=== PATIENT | male | born 1980 | race African-American/Black ===

== ENCOUNTER 2023-06-15 22:58 | Emergency (ER) | payer SELFPAY ==
[2023-06-15 23:01] VITALS: BP 145/90
[2023-06-15 23:18] LABS: % Basophils 0.3 % (0-2); % Eosinophils 1.2 % (0-6); % Immature Granulocytes 0.2 % (0-0.5); % Monocytes 10.6 % (1.7-9.3); % Neutrophils 53.7 % (42.2-75.2); Absolute Eosinophils 0.1 10^3/uL (0-0.7); Absolute Monocytes 0.6 10^3/uL (0.1-0.6); Absolute Neutrophils 3.1 10^3/uL (1.4-6.5); Hematocrit 42.8 % (39.0-52.0); Hemoglobin 15.1 g/dL (13.0-18.0); Mean Corp Hgb Conc. 35.3 g/dL (33.0-37.0); Mean Corpuscular Hgb 29.4 pg (27.0-31.0); Mean Corpuscular Volume 83.3 fL (80.0-94.0); Mean Platelet Volume 9.9 fL (7.4-10.4); Nucleated Red Blood Cells % 0 % (-); Platelet Count 198 10^3/uL (130-400); Red Blood Cell Count 5.14 10^6/uL (4.70-6.10); Red Cell Dist. Width 12.6 % (11.5-14.5); White Blood Cell Count 5.8 10^3/uL (4.8-10.8)
[2023-06-15 23:48] LABS: ALT (SGPT) 42 U/L (0-50); AST (SGOT) 32 U/L (17-59); Albumin 4.4 g/dl (3.5-5.0); Alkaline Phosphatase 126 U/L (38-126); Blood Urea Nitrogen 15 mg/dl (9-20); Calcium 9.7 mg/dl (8.4-10.2); Carbon Dioxide 22 mmol/L (22-30); Chloride 105 mmol/L (98-107); Glucose 204 mg/dl (70-99); Sodium 134 mmol/L (135-145); Total Bilirubin 0.3 mg/dl (0.2-1.3); Total Protein 8.4 g/dl (6.3-8.2); eGFR > 60.00
[2023-06-15 23:52] LABS: Troponin I < 0.012 ng/ml
--- NOTE | 2023-06-16 00:41 | ED.GENMED ---
History of Present Illness
<DANY Vidal - Last Filed: 06/16/23 00:48>
General
Chief Complaint: Chest Pain
Source: patient
Exam Limitations: none
Time Seen by Provider: 06/16/23 00:17
Nursing documentation reviewed up to this point in time: agreed with
Travel History
Have you had any contact with someone who has COVID-19?: No
Do you have any symptoms of coronavirus? Fever > 100 degrees, chills, cough, shortness of breath, sore throat, loss of taste or smell, muscle aches, or headache?: No
History of Present Illness
History of Present Illness:
patient is a 42 y/o male with no PMH presenting with CP x 4 hours. Patient states that he was relaxing when the pain came on. Patient states the pain is a dull ache that is constant and is located at his proximal chest and radiates to his back.
Patient states he has intermittent palpitations associated with the chest pain. Patient admits to a similar episode 2 years ago on his trip to [facility] but states he does not know what his diagnosis at the time was. Patient admits to recent travel to
the beach. Patient denies N/V/D/C, SOB, ARELLANO, fever, chills, dizziness, heartburn, or leg pain. Patient denies and medication changes, recent illnesses, or diet change. Patient denies alcohol or tobacco in the last 48 hrs.
Review of Systems
<DANY Vidal - Last Filed: 06/16/23 00:48>
Review of Systems
All Other Systems: Not applicable
Constitutional: Reports no symptoms
EENT: Reports no symptoms
Respiratory: Reports no symptoms
Cardiac: Reports chest pain and palpitations
ABD/GI: Reports no symptoms
: Reports no symptoms
Musculoskeletal: Reports no symptoms
Skin: Reports no symptoms
Neurological: Reports no symptoms
Endocrine: Reports no symptoms
Hematologic/Lymphatic: Reports no symptoms
Psychiatric: Reports no symptoms
Phy Exam
<DANY Vidal - Last Filed: 06/16/23 00:48>
General Physical Exam
General Presentation: well appearing and no apparent distress
General Skin: warm and dry
General Habitus: normal
General Mental: alert
General Hydration: appears well hydrated
ENT Exam
ENT Exam: EOMI, pharynx normal, neck supple and normocephalic
Eye Exam
Eye Exam: PERRL, cornea clear and conjunctiva normal
Cardiovascular Exam
Cardiovascular Exam: regular rate/rhythm, no edema, no murmur and normal peripheral pulses
Pulmonary Exam
Pulmonary Exam: lungs clear, no respiratory distress, no rales, no crackles, no rhonchi, no stridor, no wheezing and no cough
Gastrointestinal Exam
Gastrointestinal Exam: normal bowel sounds, non tender, soft, no organomegaly, no pulsatile mass and non distended
Neurological Exam
Neurological Exam: alert, oriented x3, no motor deficits and speech normal
Musculoskeletal Exam
Musculoskeletal Exam: full ROM and no edema
Skin Exam
Skin Exam: normal color, warm/dry, no rash and no petechia
Psychiatric Exam
Psychiatric Exam: normal mood/affect
Scores
<Kris Carpio DO - Last Filed: 06/16/23 02:55>
Heart Score for Chest Pain Patients
STEMI patient?: No
History: Slightly or Non-Suspicious
ECG: Normal
Age: </= 45 years
Risk Factors: 1 or 2 Risk Factors
Troponin: </= Normal Limit
Heart Score for Chest Pain Patients: 1
Heart Score Risk: 2.5% MACE over next 6 weeks
Course
<DANY Vidal - Last Filed: 06/16/23 00:48>
Orders/Labs/Results
Orders:
Orders
06/15/23 23:00
Electrocardiogram (*1) Urgent
Reason for Study: Chest Pain
06/15/23 23:01
EKG- Treatment ONCE
06/15/23 23:13
CMP [Comprehensive Metabolic Panel] Urgent
Complete Blood Count/With Diff Urgent
Troponin I Urgent
06/16/23 01:14
CR Chest - 2 Views Urgent
Comment:
Reason For Exam: chest pain
06/16/23 01:52
EKG [Electrocardiogram (*1)] Urgent
Reason for Study: Chest Pain
EKG- Treatment ONCE
06/16/23 01:58
Troponin I Urgent
Abnormal Lab Results
06/15/23
23:13
Monocytes % 10.6 H %
(1.7-9.3)
Sodium 134 L mmol/L
(135-145)
Glucose 204 H mg/dl
(70-99)
Total Protein 8.4 H g/dl
(6.3-8.2)
06/15/23 23:13
06/15/23 23:13
Vital Signs
Initial and Last Documented VS:
Initial Vital Signs
Temp Pulse Resp BP Pulse Ox
98.9 F 74 18 145/90 97
06/15/23 23:01 06/15/23 23:01 06/15/23 23:01 06/15/23 23:01 06/15/23 23:01
Last Documented Vital Signs
Temp Pulse Resp BP Pulse Ox
98.9 F 57 22 130/87 98
06/15/23 23:01 06/16/23 02:45 06/16/23 02:30 06/16/23 02:00 06/16/23 02:45
<Kris Carpio, - Last Filed: 06/16/23 02:55>
Orders/Labs/Results
Orders:
Orders
06/15/23 23:00
Electrocardiogram (*1) Urgent
Reason for Study: Chest Pain
06/15/23 23:01
EKG- Treatment ONCE
06/15/23 23:13
CMP [Comprehensive Metabolic Panel] Urgent
Complete Blood Count/With Diff Urgent
Troponin I Urgent
06/16/23 01:14
CR Chest - 2 Views Urgent
Comment:
Reason For Exam: chest pain
06/16/23 01:52
EKG [Electrocardiogram (*1)] Urgent
Reason for Study: Chest Pain
EKG- Treatment ONCE
06/16/23 01:58
Troponin I Urgent
Abnormal Lab Results
06/15/23
23:13
Monocytes % 10.6 H %
(1.7-9.3)
Sodium 134 L mmol/L
(135-145)
Glucose 204 H mg/dl
(70-99)
Total Protein 8.4 H g/dl
(6.3-8.2)
06/15/23 23:13
06/15/23 23:13
Vital Signs
Initial and Last Documented VS:
Initial Vital Signs
Temp Pulse Resp BP Pulse Ox
98.9 F 74 18 145/90 97
06/15/23 23:01 06/15/23 23:01 06/15/23 23:01 06/15/23 23:01 06/15/23 23:01
Last Documented Vital Signs
Temp Pulse Resp BP Pulse Ox
98.9 F 57 22 130/87 98
06/15/23 23:01 06/16/23 02:45 06/16/23 02:30 06/16/23 02:00 06/16/23 02:45
Alialt;DANY Vidal - Last Filed: 06/16/23 00:48>
MDM/Problems Addressed
Differential Diagnosis Includes:
unstable angina
anxiety
aortic dissection
PE
MDM/Problems Addressed:
chest pain
<DANY Vidal - Last Filed: 06/16/23 00:48>
*Critical Care Note
Total Time (30-74mins, 75-104mins- exclusive of procedures): Not Applicable
<Kris Carpio DO - Last Filed: 06/16/23 02:55>
Update Note
Update Note:
06/16/2023 0251 AM: Reviewed troponins with patient. His troponin is slightly increased. He does not wish to go. The troponin again he wishes to be discharged. He will follow-up with our magazine hand. He will return to ER with any changing or
worsening of symptoms.
ED Attending Note
<DANY Vidal - Last Filed: 06/16/23 00:48>
-
Portions of this chart may have been created with voice recognition software.� Occasional wrong word or��sound alike� substitutions may have occurred due to the inherent limitations of voice recognition software.
<Kris Carpio DO - Last Filed: 06/16/23 02:55>
ED Attending Note
Patient seen and examined by attending physician: Yes
I performed the substantive portion of visit, reviewed & personally made and approve the management plan that is documented in note by myself or SURI.: Yes
ED Attending Note:
Pleasant 42-year-old male presents with chest pain that is been present for the last 4 hours. He states that he was laying on his bed in his hotel room when the pain came on. He denies any shortness of breath. He reports that the dull pain starts
in his left chest and radiates to his back. He also had palpitations briefly. He did have similar episodes 2 years ago but was unsure of the diagnosis at that time. Patient lives in [place] but is on vacation here for the next few days. Patient
works as a second chef. He does not drink alcohol or engage in tobacco or drug use. Denies any other complaints. At time of exam, pain is resolved. Patient was seen in conjunction with the PA student. I have reviewed and agree with the history and
treatment plan presented. On my independent physical exam, patient is awake, alert, and oriented x3, no acute distress. Heart is regular rate and rhythm. Lungs clear to auscultation bilaterally without wheezes rales or rhonchi present. Abdomen
soft and nontender.
Plan is repeat troponin.
Discharge Plan
Departure
Patient Disposition: Home (Routine Discharge)
Date of Disposition: 06/16/23
Time of Disposition: 02:52
Patient with high blood pressure during this ER visit?: Yes
Condition: Good
Discharge Problem:
Chest pain
Instructions: Chest Pain [facility] Follow Up, BLOOD PRESSURE
Referrals:
[facility]- [facility] [Provider Group]
NONE,* [Family Provider] -
Activity Restrictions/Additional Instructions:
It was a pleasure meeting you and taking part in your care. We hope for your continued healing and wellness.
Please read discharge instructions in their entirety. However, they are for general education and may not describe your exact diagnosis at discharge. Information on your ER visit and medical conditions were discussed with you along with appropriate
follow up information...
If indicated, please take your medications as instructed and indicated on discharge paperwork.
Please schedule a follow up appointment as directed. Call to schedule an appointment
Please return to the emergency department with ANY change in, persisting, or worsening of symptoms. If any of your symptoms do not improve, or persist, or become more severe within 6-12 hours, please return to the emergency department for further
care.
Please return to the emergency department if you develop a headache, neck pain/stiffness, fever greater than 100.4F, chest pain, shortness of breath, persistent nausea, vomiting, slurred speech, difficulty walking, numbness/tingling, weakness, signs
of infection or any other symptoms that are worrisome to you.
If you have any questions or concerns please do not hesitate to call the Hospital at or E-mail me directly at [email or web address]
Interventions
Interventions:
*Risk Screen - Suicide Last Done: 06/15/23 23:01
*General Assessment Last Done: 06/16/23 01:18
*Neglect/Abuse Screening Last Done: 06/15/23 23:01
ED- Fall Risk Assessment Last Done: 06/16/23 01:18
ED- Cardiac Assessment Last Done: 06/16/23 01:18
Discharge Date and Time
Print Language: MACEDONIAN
[2023-06-16 01:20] VITALS: BP 139/84
[2023-06-16 02:00] VITALS: BP 130/87
[2023-06-16 02:03] VITALS: BMI 29.1
[2023-06-16 02:45] LABS: Troponin I 0.016 ng/ml
== END 2023-06-16 02:57 | disposition home or self-care (01) ==
LOC: EMR 22:58
PROVIDERS: EMERGENCY PHYSICIAN Student in an Organized Health Care Education/Training Program
DX: R07.9 Chest pain, unspecified (principal); R00.2 Palpitations; R03.0 Elevated blood-pressure reading, without diagnosis of hypertension; R79.89 Other specified abnormal findings of blood chemistry
CPT/HCPCS: 99285; 71046; 80053; 84484; 85025; 93005